=== PATIENT | female | born 1985 | race Caucasian/White ===

== ENCOUNTER 2017-01-30 06:52 | Day surgery (SDC) | payer OTHER ==
--- NOTE | 2017-01-29 08:47 | PDGENHP ---
History and Physical - Chief Complaint Right hip pain - History of Present Illness 1. Right~Hip Pain~(anterior instability vs. Intra-articular pathology) 2. ~~Clinical femoral antetorsion 3. ~S/P SHANNAN 2009, S/P Hip scope 2011 4.~Hyperlaxity 5. Retained HW from SHANNAN HISTORY OF PRESENT ILLNESS: Alconis a 31 y.o.~active female~who I have had the pleasure to consult on today.~I have enjoyed meeting her. She~lives in [place]. 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 ~She~is ; she~has one~ child. ~Alconenjoys volleyball, swimming, running. She originally started having Right hip pain in 2008; she does not recall having any prior hip pain. She saw Dr. Andres, who diagnosed her with dysplasia, and performed a SHANNAN in 2009. Post-op she did very well initially, but ab out one year after the surgery she fell and had a pop in her hip. After she had a recurrence of pain in the Right hip. She had an MRI which was inconclusive for a labral tear due to metal artifact. She had a hip scope by Dr. Alfonso in 2011; she believes he just cleaned things up and did not find a labral tear. After this she did well for 4 years. She started having pain again about 5-6 months ago and this has been slowly progressive. She had stopped working for approximately 1 year due to /baby, and the recurrence of pain was shortly after she started working again. Presentation today is of~anterior and posterior right~hip pain. The hip does~ wake her~at night and does~click and catch on her. Sitting can be uncomfortable~ for her. Alcondoes~report suffering from lower back pain episodes. Alconhas not~participated in physical therapy recently. She has~tried other conservative measures including massage therapy and US guided Right IP bursa injection by Dr. Leavitt 2 months ago which provided minimal relief including during the first several hours. She~has not~received sufficient symptomatic improvement. Alconhas~utilized medication for pain management, including NSAID and Percocet. Alconhas used medication intermittently~for several years. Alconhas minimal pain in~the left~hip. ~ Alconunderstands that she~has a hip and pelvis problem which should be researched and wishes to get a better understanding of her~hip status, followed by an establishment of a treatment strategy, hoping she~would be able to get back to her~well being active life. History: Past medical history: ~ None which is relevant Relevant familial history: None which is relevant Past surgical history: Past Surgical History Past Surgical History: Procedure Laterality Date HIP SURGERY Right 2010 SHANNAN HIP SURGERY Right 2012 Arthroscopy Right Hip LIPOMA RESECTION 2015 NASAL FRACTURE SURGERY 2017 Alcondenies problematic issues with general anesthesia in the past. I have reviewed, verified and agree with the past medical, surgical, family and social history. Current Medications:~has a current medication list which includes the following prescription(s): amitriptyline, fluoxetine, ibuprofen, l-norgest/e.estradiol- e.estrad, and oxycodone-acetaminophen. ALLERGIES:~has No Known Allergies. Objective: Physical Examination: Alconis 5~feet 5~inches tall and weighs~145~Lbs. Alconis AAO x3; she~is well-nourished, in NAD. Skin is warm and dry. ~Breathing is non-labored. ~CV with RRR by pulse. Abdomen is soft, NTND. Currently, she~walks with a normal~gait. Trendelenburg sign is negative~and proprioception~is reduced, both~sides. She~presents~with severe~signs of joint laxity.~Beightons Score: 9 Lower spine examination is negative~for sciatic or femoral nerve irritation with negative~SLR &~femoral stretch tests. Range of motion of the spine is normal~for flexion, extension, and rotations, with~associated pain. Strength, Sensation and pulses are normal - bilaterally~aside from 4/5 Right hip flexion Ankles and knees exams are normal~and no~mal-alignment is evident. She~has~no leg length discrepancy. Thigh circumference is symmetric~with no evidence for muscle atrophy~on both~ sides. Hip ROM (degrees): FL ER At 90~hip FL IR At 90~hip FL AB AD EX IR Neutral hip ER Neutral hip R 115 45 45 45 5 5 55 30 L 115 50 45 55 5 5 55 25 Specific hip and pelvis tests: Quadrant LORRI Roll Add. Longus R +++ +++ Negative + L Negative + Negative Negative Glut. Med ITB Pos. Imp R + 5/5 strength Negative 5/5 strength Negative L Negative 5/5 strength Negative 5/5 strength Negative Squeeze test measured normal Bony Symphysis pubis is painful~to touch~while concentric activity of the rectus abdominis, does not~produce pain at its insertion. Ilio Psos specific tests are positive for pain during cycling for the right hip~ and remarkable for painful snap~on the right HF has pain and weakness on the right hip. Anterior and Posterior capsule tenderness on the Right Greater trochanteric burse is painful~on the right hip. Piriformis tests: FAIR is negative, with no~local signs of neuritis related to sciatic nerve. SIJs examination is produces pain on right side~with normal~LORRI in relation and local tenderness. Hamstrings tests are negative~functional contraction on both hips~and positive for mild~tendinopathy on the right hip. On a daily basis, the following percentages reflect Mena's overall total pain : Deep hip: 80% SI: 10% IP: 5% GT: 5% Imaging: Radiology studies which I~have personally reviewed, analyzed and measured are below: XR: AP of the hip and pelvis: Performed in a suboptimal~technique Coccyx to pubic symphysis distance 2.3~cm. 0~degrees caudal/cephal [place]~Lines are preserved. Minimal~Pathological signs are seen in the Symphysis Pubis. Minimal~Pathological signs are seen at the Ischial~tuberosity. ~ Specific measurements show: NSA~ LCE Sourcil~Angle Sharp's angle Lat. Cam Lat. Pincer C.Over~sign Head~Coverage % ATDmm R N 36 3 36 - - - N N L N 19 12 43 - - - 74 N Pos. wall sign ISS NAD ~~Dysplasia Comments R Negative Negative 25~mm + Anterior under coverage Posterior over coverage L Negative Negative 19~mm ++ Sclerosis Sup. Lat. OA Cysts Joint Space-WBZ Joint Space-Medial R Negative Negative Negative 4.9~mm 3.8~mm L Negative Negative Negative 6.2~mm 4.8~mm X Table lateral: Anterior cam lesion is seen~on the left hip. Alpha Angle: ~ Right 46~dergrees Left 61~degrees MRI shows: Cartilage intact, very hypertrophic labrum (15mm laterally), possible deficient capsule Impression and plan:~ Mena~is a 31 y.o.~active female~suffering from symptomatic right~hip pain s/ p SHANNAN and a hip scope, possibly due to anterior instability vs intra-articular pathology as well as clinical femoral antetorsion. This is causing significant disability to her~and altering~her~sport and life activities. Physical examination, imaging, and her~story correspond with the diagnosis mentioned above. In general, regarding her possible problems: I explained that hip dysplasia is a condition wherein the hip joint has excessive play~and instability due to a variety of factors, including the depth and adequacy of the socket, the orientation of the femur bone, and ligament laxity around the hip joint. Dysplasia ranges in severity from borderline to jossy, with treatment options being specific to the specific nature of the problem. Left untreated, the instability in the hip joint can cause progressive tearing of the labrum and deterioration of the surface cartilage, ultimately resulting in progressive osteoarthritis of the hip. I explained that although a labral tear can be a source of pain, it is rarely the root of the problem and typically occurs secondary to an underlying abnormality in the shape and mechanics of the hip joint. I reviewed conservative treatment options for Dysplasia and DONAL including activity modification to avoid positions of impingement or instability, physical therapy, non-steroidal anti-inflammatory medications, and various injections (corticosteroid and PRP) aimed at reducing inflammation in the hip joint or/and preventing dynamic instability and impingement. PRP injections may promote healing and reduce symptoms in certain cases but it will not repair chronically damaged tissue. Although these measures may help to buy time~and reduce current level of symptoms, they are not a definitive solution to the problem given the underlying abnormality in the shape of the hip joint. Patients who have failed conservative management and continue to experience symptoms are candidates for definitive surgical treatment, which may consist of hip arthroscopy alone or in combination with more invasive bony realignment procedures of the hip socket and/or femur called periacetabular osteotomy (SHANNAN) or derotational femoral osteotomy (DFO). Hip arthroscopy typically includes treating the labrum with either repair or reconstruction of the torn labrum; as well as addressing the underlying abnormalities by restoring the normal shape to the hip joint. If the cartilage is damaged a Microfracture surgical procedure may also be necessary to help stimulate the growth of fibrocartilage. If a patient requires a labral reconstruction or a Microfracture, the initial rehabilitation from the surgery may take longer, but the long-term results are typically favorable. I reviewed the technical aspects of periacetabular osteotomy (SHANNAN) including risks, benefits, and expected course of recovery. Mena~understands that SHANNAN is an inpatient procedure carried out through two medium sized incisions on the front and back of the hip joint. The hip socket is cut, realigned, and stabilized with 2 ~3 internal screws. Risks include infection, bleeding, injury to nearby nerves or vessels, stiffness, persistent pain, instability, failure of bony healing, implant related complications, and venous thromboembolic disease. Rarely, revision surgery may be required to address these problems. Risks, potential complications, side effects and recovery from surgical procedure were discussed in length. We explained how this surgery is an open procedure, and though patients tend to do well in the long-term, it involves significant pain in the first 2-4 weeks post-op and a rather lengthy rehab.~Overall recovery takes approximately 6 ~12~months depending on the extent of damage and degree of repair. Mena~understands that she~will undergo hip arthroscopy 1 week prior to the SHANNAN to address damage inside the hip joint. Mena~understands that hip arthroscopy and SHANNAN are two separate procedures that are best performed one week apart, with the arthroscopy commencing first to "tighten up" any pathology evident in the hip joint (labral repair, etc.) and the SHANNAN open procedure occurring 7-10 days later to realign the acetabulum. I reviewed the technical aspects of derotational femoral osteotomy (DFO) including risks, benefits, and expected course of recovery.~Mena~understands that DFO is a minimally invasive inpatient procedure carried out through a small incision on the outer aspects of the hip joint. The femur bone is cut, realigned, and stabilized with a igor. Risks, potential complications, side effects and recovery from surgical procedure were discussed in length.~Mena~ understands that he/she will undergo hip arthroscopy 1 week prior to the DFO to address damage inside the hip joint to include labral repair and correction of Hip impingement. I reviewed the technical aspects of hip arthroscopy including risks, benefits, and expected course of recovery. Mena~understands that hip arthroscopy is a minimally invasive outpatient procedure carried out through small incisions on the outer aspect of the hip joint. During surgery, the labral tear will be identified and either repaired or reconstructed~using bone anchors and suture material. Additionally, any excessive bone will be removed with a high-speed edward to reshape the hip joint and restore normal anatomy. Risks include infection, bleeding, injury to nearby nerves or vessels, stiffness, persistent pain, instability, venous thromboembolic disease, and traction related complications including temporary foot numbness. Rarely, revision surgery may be required to address these problems. Overall recovery takes approximately 4~~ 8~months depending on the extent of damage and degree of repair. In the event that the labral tissue quality is inadequate for successful repair and healing, Alconunderstands that a labral reconstruction will be performed. This procedure entails placing a cadaver tissue graft within the hip joint and stabilizing it with bone anchors to build a new labrum. The overall recovery time for labral reconstruction is similar to that of labral repair, although the surgical procedure takes longer to perform. Mena~will review the info presented. In order to obtain more detailed information regarding the alignment, orientation, and shape of the bony hip and pelvis I will order a CT scan to be performed. The results of the CT scan, including femoral torsion and acetabular version measured values and 3D images, will aid me in deciding on the best treatment strategy and surgical pre-planning. Mena~is going to contact us after completing her~imaging studies. Once these are ready we can review these together and see what of the above, if at all, is relevant to her at this stage. Alconis happy with this plan. I have also supplied her~with handouts, outlining the expected surgical treatment and rehab involved. I wish~Alconall the best, ~~ Murali Hall MD History Information - Allergies/Home Medication List Allergies/Adverse Reactions: No Known Allergies Allergy (Verified 01/06/17 16:18) Home Medications: AMITRIPTYLINE HCL 01/06/17 [Last Taken Unknown] Control Pill 01/06/17 [Last Taken Unknown] FLUOXETINE HCL 01/06/17 [Last Taken Unknown] Herbals/Supplements -Info Only 01/06/17 [Last Taken Unknown] Oxycodone HCl 01/06/17 [Last Taken Unknown] I have personally reviewed and updated: medical history - Social History Smoking Status: Former smoker Review of Systems Review of Systems: Physical Exam Physical Exam:
[2017-01-30] MEDS ORDERED: ceFAZolin 2 GM/SWFI 2 GM/20 ML SYR IVP ONE (07:20)
[2017-01-30] MEDS ORDERED: PREGABALIN 150 MG CAP PO ONE (07:20)
[2017-01-30] MEDS ORDERED: ACETAMINOPHEN 500 MG TAB PO ONE (07:20)
[2017-01-30] MEDS ORDERED: LIDOCAINE 1% 2 ML INJ ID PRN (07:22)
[2017-01-30] MEDS ORDERED: LR 1,000 ML IV ONE (07:22)
[2017-01-30 07:38] VITALS: PULSE 84
[2017-01-30] MEDS ORDERED: PROPOFOL 200 MG/20 ML VIAL ONE (08:14)
[2017-01-30] MEDS ORDERED: ONDANSETRON 4 MG/2 ML VIAL ONE (08:14)
[2017-01-30] MEDS ORDERED: LIDOCAINE 2% 5 ML SDV ONE (08:14)
[2017-01-30] MEDS ORDERED: DEXAMETHASONE 4 MG/ML VIAL ONE (08:14)
[2017-01-30] MEDS ORDERED: fentaNYL 100 MCG/2 ML INJ ONE ×5 (08:14→13:29)
[2017-01-30] MEDS ORDERED: BUPIVACAINE 0.25% 30 ML SDV ONE (08:25)
[2017-01-30] MEDS ORDERED: EPINEPHrine 30 MG/30 ML MDV ONE (08:25)
[2017-01-30] MEDS ORDERED: MIDAZOLAM 2 MG/2 ML VIAL IVP ONE (08:25)
--- NOTE | 2017-01-30 08:27 | PDANEPAE ---
ANE History of Present Illness right hip pain and existing hardware ANE Past Medical History - Cardiovascular History Hx Hypertension: No Hx Arrhythmias: No Hx Chest Pain: No Hx Coronary Artery / Peripheral Vascular Disease: No Hx CHF / Valvular Disease: No Hx Palpitations: No - Pulmonary History Hx COPD: No Hx Asthma/Reactive Airway Disease: No Hx Recent Upper Respiratory Infection: No Hx Oxygen in Use at Home: No Hx Sleep Apnea: No Sleep Apnea Screening Result - Last Documented: Negative - Neurologic History Hx Cerebrovascular Accident: No Hx Seizures: No Hx Dementia: No - Endocrine History Hx Diabetes: No - Renal History Hx Renal Disorders: No - Liver History Hx Hepatic Disorders: No - Neurological & Psychiatric Hx Hx Neurological and Psychiatric Disorders: Yes Neurological / Psychiatric History Comment: HX OF DEPRESSION. ANXIETY. OCD - Cancer History Hx Cancer: No - Congenital Disorder History Hx Congenital Disorders: No - GI History Hx Gastrointestinal Disorders: No - Other Health History Other Health History: WEARS GLASSES/ CONTACTS. ECZEMA- CURRENTLY NO ISSUES - Chronic Pain History Chronic Pain: Yes (LOW BACK PAIN AND BILATERAL HIPS- RIGHT WORSE THAN LEFT) - Surgical History Prior Surgeries: RIGHT SHANNAN. PE TUBES . SCOPE ON RIGHT HIP. LYPOMA REMOVED FROM RIGHT SIDE. NASAL REPAIR ANE Review of Systems Review of Systems: - Exercise capacity METS (RN): 4 METS ANE Patient History - Allergies Allergies/Adverse Reactions: No Known Allergies Allergy (Verified 01/06/17 16:18) - Home Medications Home medications: home medication list seen and reviewed Home Medications: AMITRIPTYLINE HCL 01/06/17 [Last Taken 01/29/17] Control Pill 01/06/17 [Last Taken 01/29/17] FLUOXETINE HCL 01/06/17 [Last Taken 01/29/17] Herbals/Supplements -Info Only 01/06/17 [Last Taken 01/22/17] Oxycodone HCl 01/06/17 [Last Taken 01/29/17] - NPO status NPO Since - Liquids (Date): 01/30/17 NPO Since - Liquids (Time): 04:30 NPO Since - Solids (Date): 01/29/17 NPO Since - Solids (Time): 19:30 - Anes Hx Anes Hx: no prior problems - Smoking Hx Smoking Status: Former smoker - Family Anes Hx Family Hx Anesthesia Complications: NONE ANE Labs/Vital Signs - Vital Signs Blood Pressure: 112/78 Heart Rate: 84 Respiratory Rate: 16 O2 Sat (%): 96 Height: 165.1 cm Weight: 65.771 kg ANE Physical Exam - Airway Neck exam: FROM Mallampati Score: Class 1 Mouth exam: normal dental/mouth exam - Pulmonary Pulmonary: no respiratory distress - Cardiovascular Cardiovascular: regular rate and rhythym - ASA Status ASA Status: II ANE Anesthesia Plan Anesthesia Plan: general endotracheal anesthesia
[2017-01-30] MEDS ORDERED: ROCURONIUM 100 MG/10 ML VIAL ONE (08:31)
[2017-01-30] MEDS ORDERED: SUGAMMADEX SODIUM 200 MG/2 ML VIAL IVP ONE (08:31)
[2017-01-30] MEDS ORDERED: LR 500 ML IV PRN (11:06)
[2017-01-30] MEDS ORDERED: PROMETHAZINE HCL 25 MG/ML INJ IVP PRN (11:06)
[2017-01-30] MEDS ORDERED: ACETAMINOPHEN 500 MG TAB PO PRN (11:06)
[2017-01-30] MEDS ORDERED: ALBUTEROL 3 ML DEYVIAL IH PRN (11:06)
[2017-01-30] MEDS ORDERED: ONDANSETRON 4 MG/2 ML VIAL IVP PRN (11:06)
[2017-01-30] MEDS ORDERED: NALOXONE HCL 0.4 MG/ML INJ IVP PRN (11:06)
[2017-01-30] MEDS ORDERED: OXYCODONE/APAP 5/325 TAB PO PRN (11:06)
[2017-01-30] MEDS ORDERED: ceFAZolin 1 GM VIAL ONE (11:53)
[2017-01-30] MEDS ORDERED: PHENYLEPHRINE HCL 100 MCG/ML SYR ONE ×2 (12:26)
[2017-01-30] MEDS ORDERED: HYDROGEN PEROXIDE 236 ML BOTTLE TP ONE (13:00)
[2017-01-30] MEDS ORDERED: HYDROmorphONE/DILAUDID 1 MG/ML INJ ONE ×3 (13:28→14:03)
[2017-01-30] MEDS: HYDROmorphONE/DILAUDID 1 MG/ML INJ IVP PRN ×6 (13:30→14:27)
[2017-01-30] MEDS: fentaNYL 100 MCG/2 ML INJ IVP PRN ×2 (13:35→13:40)
[2017-01-30] MEDS ORDERED: OXYCODONE/APAP 5/325 TAB ONE (13:46)
--- NOTE | 2017-01-30 13:52 | POSTANESTH ---
Post Anesthetic Evaluation Cardiovascular Status: Normal, Stable Respiratory Status: Normal, Stable Level of Consciousness/Mental Status: Can Participate in Eval Pain Control: Adequate, Prn Tx Ordered Nausea/Vomiting Control: Adequate, Prn Tx Ordered Complications Possibly Related to Anesthesia: None Noted
[2017-01-30 14:01] VITALS: TEMP 98.2
[2017-01-30 15:02] VITALS: BP 112/60; RESP 16; O2SAT 91
== END 2017-01-30 15:23 | disposition home or self-care (01) ==
LOC: FSGY 06:52
PROVIDERS: ATTEND Orthopaedic Surgery Sports Medicine
PROC: 0SQ94ZZ Repair Right Hip Joint, Percutaneous Endoscopic Approach (ICD-10-PCS; principal; 2017-01-30 08:30)
PROC: 0SB94ZZ Excision of Right Hip Joint, Percutaneous Endoscopic Approach (ICD-10-PCS; principal; 2017-01-30 08:30)
DX: M25.851 Other specified joint disorders, right hip (principal); M94.8X5 Other specified disorders of cartilage, thigh; M25.351 Other instability, right hip; S73.191A Other sprain of right hip, initial encounter
CPT/HCPCS: C1713; J0690; J1100; J1170; J2250; J2370; J2405; J2704; J3010